=== PATIENT | male | born 1960 | race Caucasian/White ===

== ENCOUNTER → 2017-10-09 | Day surgery (SDC) | payer BC ==
[2017-10-08 14:12] VITALS: BMI 50.5
[~2017-10-09] MED LIST: Propofol 200 MG/20 ML VIAL ONE
--- NOTE | 2017-10-09 17:45 | OP ---
PREOPERATIVE DIAGNOSIS: 1. Colorectal cancer screening. 2. Distant family history of colon cancer. PROCEDURE: After informed consent was obtained, the patient was placed in the left lateral decubitus position. Anesthesia was administered per the Anesthesia Department. Forward-viewing endoscope was inserted into the rectum after perianal inspection and rectal exam were normal and passed to the cec um. The cecal cap was not fully visualized, but could be seen from a distance. The ascending was no rmal except for a small polyp. This was removed with cold snare polypectomy. Diffuse diverticula we re noted in the ascending transverse, descending sigmoid. Two additional polyps were removed, one in the rectum, the other in the descending colon. ASSESSMENT: 1. Three small colon polyps -- status post cold snare polypectomy. 2. Diffuse diverticulosis coli. RECOMMENDATIONS: Repeat colonoscopy in five years, pending histopathology.
== END ==
LOC: SDC 12:02
PROVIDERS: ATTEND Internal Medicine Gastroenterology
PROC: 0DBL8ZX Excision of Transverse Colon, Via Natural or Artificial Opening Endoscopic, Diagnostic (ICD-10-PCS; principal; 2017-10-09)
PROC: 0DBK8ZX Excision of Ascending Colon, Via Natural or Artificial Opening Endoscopic, Diagnostic (ICD-10-PCS; principal; 2017-10-09)
PROC: 0DBM8ZX Excision of Descending Colon, Via Natural or Artificial Opening Endoscopic, Diagnostic (ICD-10-PCS; principal; 2017-10-09)
DX: Z12.11 Encounter for screening for malignant neoplasm of colon (principal); D12.3 Benign neoplasm of transverse colon; K57.30 Diverticulosis of large intestine without perforation or abscess without bleeding; Z79.890 Hormone replacement therapy; Z79.899 Other long term (current) drug therapy; Z91.040 Latex allergy status; Z98.890 Other specified postprocedural states
CPT/HCPCS: 88305; J2704